=== PATIENT | male | born 1955 | race Caucasian/White ===

== ENCOUNTER 2019-10-19 10:16 | Emergency (ER) | payer MEDICARE, MEDICAID, SELFPAY ==
[2019-10-19 10:25] VITALS: BP 152/86; PULSE 71; RESP 16; TEMP 36.8; O2SAT 97; BMI 25.8
--- NOTE | 2019-10-19 10:38 | PC.NURSE ---
patient reports he was drilling a 11/04 hole overhead for plumbing and the tool slipped hitting his right forearm causing a large laceration. He states it bled really good at first making a mess of the house he was in. He reports the tool ripped the sleeve off of his shirt. He applied a pressure dressing with a bedsheet and tape. He lives on [address] and had to wait till today to get a ferry to come to the ED. States the clinic was closed on [place]
[2019-10-19] MEDS: TET,DIPH,PERTUSS(ACELL),VAC/PF 0.5 ML SYRINGE IM (10:39)
[2019-10-19] MEDS: LIDO 1%/SOD BICARB 8.4% (10ML) 10 ML SYRINGE INJ (10:39)
--- NOTE | 2019-10-19 11:07 | ED_ITS ---
HPI - Wound/Laceration General Chief Complaint: Wound/Laceration Stated Complaint: Wound from drill in right arm Time Seen by Provider: 10/19/19 10:36 History of Present Illness HPI narrative: 64-year-old gentleman with no significant medical history was working with a drill yesterday it slipped and left the laceration to the dorsum of the right forearm. It happened later in the evening and he lives on [address] and was not able to get to [place] until this morning. Related Data Previous Rx's Medication Instructions Recorded cephalexin 500 mg PO TID #21 cap 10/19/19 Allergies Allergy/AdvReac Type Severity Reaction Status Date / Time No Known Drug Allergies Allergy Verified 10/19/19 11:06 Review of Systems Review of Systems Narrative: Pertinent positive and negative findings as per HPI Remainder of review of systems is otherwise unremarkable for Constitutional: Fevers, chills, weakness ENT: No sore throat, neck pain, ear pain CV: Chest pain, palpitations, dyspnea on exertion Respiratory: Cough, wheeze, dyspnea GI: Nausea, vomiting, diarrhea, change in bowel habits, black or bloody stools : Dysuria, hematuria, flank pain MS: Muscle weakness, numbness, joint swelling or warmth Patient History Medical History (Updated 10/19/19 @ 11:09 by Shruhti Vicente MD) Healthy adult (Acute) Exam Narrative Exam Narrative: General: Alert appropriate in no acute distress Respiratory: Able to speak in full sentences, no obvious respiratory distress Skin: No obvious rashes, warm and dry Neurologic: Grossly intact no obvious asymmetries or abnormalities Psych, appropriate insight and affect, cooperative Extremity: General: Alert appropriate in no acute distress Respiratory: Able to speak in full sentences, no obvious respiratory distress Skin: No obvious rashes, warm and dry Neurologic: Grossly intact no obvious asymmetries or abnormalities Psych, appropriate insight and affect, cooperative Extremity: There is a wound to the dorsum of the right forearm, 4 cm in length full thickness. There is a half a cm defect to the fascial sheath underneath but no underlying tendon deficit. He is narrowed vascularly intact distally. Initial Vital Signs Initial Vital Signs: Vital Signs Temperature 98.2 F 10/19/19 10:25 Pulse Rate 71 10/19/19 10:25 Respiratory Rate 16 10/19/19 10:25 Blood Pressure 152/86 H 10/19/19 10:25 Pulse Oximetry 97 10/19/19 10:25 Procedures Laceration Repair Right forearm: Site: upper extremity Side (If applicable): right Size (cm): 4 Description: linear Depth: involves muscle layer Local Anesthetic: lidocaine 1% and with bicarb Amount of anesthesia used (mL): 10 Pre-repair: wound explored, irrigated extensively, deep structures intact and wound margins revised Skin layer closed with: nylon Size (cm): 3-0 Number of sutures: 8 Technique: simple, interrupted Subcutaneous layer closed with: chromic gut Size: 3-0 Number of sutures: 4 Course Orders Ordered: Discontinued Medications Bacitracin (Bacitracin) 5 applic TOP NOW ONE Stop: 10/19/19 11:04 Cephalexin HCl (Keflex) 500 mg PO NOW ONE Stop: 10/19/19 11:04 Diphtheria/Tetanus/Acell Pertussis (Adacel) 0.5 ml IM .ONCE ONE Stop: 10/19/19 10:28 Last Admin: 10/19/19 10:39 Dose: 0.5 ml Documented by: KAILA Lidocaine/Sodium Bicarbonate (Buffered Lidocaine 10 Ml Syr) 10 ml INJ NOW ONE Stop: 10/19/19 10:30 Last Admin: 10/19/19 10:31 Dose: Not Given Documented by: KAILA Lidocaine/Sodium Bicarbonate (Buffered Lidocaine 10 Ml Syr) 10 ml INJ NOW ONE Stop: 10/19/19 10:32 Last Admin: 10/19/19 10:39 Dose: 10 ml Documented by: KAILA Vital Signs Vital signs: Vital Signs - 8 hr 10/19/19 10:25 Temperature 98.2 F Pulse Rate 71 Respiratory Rate 16 Blood Pressure 152/86 H Pulse Oximetry 97 [facility] - Wound/Laceration Medical Records Attestation: I reviewed the patient's medical records. [facility] Narrative Medical decision making narrative: 64-year-old gentleman with full-thickness laceration to the back of his arm. Wound edges are revised for better both aesthetic and overall healing and also because the wound itself is almost 24 hours old. There is no tendon involvement and we barely clearly reviewed signs and symptoms of infection into the deeper structures of the forearm and need for immediate evaluation should he have any concerns. Wound is closed under moderate amount of tension so recommended 14 days to leave the sutures in. Tetanus status is updated and Keflex prescription is given. Patient is safe for home discharge Discharge Plan Departure Patient Disposition: Home Clinical Impression: Laceration Instructions: DI for Laceration Repair Activity Restrictions/Additional Instructions: Thank you for coming in today Your wound definitely needed stitches and is still at some risk for infection including infection deeper into your arm along the tendons. If you have any concerns whatsoever with increasing pain increasing pain with flexing her hand or fingers or redness or swelling you need to see a physician right away. I did put a number of stitches deep inside to hold the wound together and this stitches on the surface will need to come out on or about November 02 Please complete your course of Keflex 500 mg 3 times a day for 7 days. Using 400 mg of ibuprofen (2 [id number] pills) and 1 Tylenol every 6 hours can be very helpful in controlling pain. It was a pleasure to talk with you and I hope you heal quickly. Prescriptions: New cephalexin 500 mg capsule 500 mg PO TID Qty: 21 RF: 0 Referrals: Akbar Das MD [Primary Care Provider] -
[2019-10-19] MEDS: cephALEXin 250 MG CAPSULE 500 MG PO (11:21)
[2019-10-19] MEDS: BACITRACIN OINT 0.9 GM PCKT 5 APPLIC TOP (11:23)
[2019-10-19 11:36] VITALS: BP 126/74; PULSE 60; RESP 18; O2SAT 97
== END 2019-10-19 11:37 | disposition home or self-care (01) ==
PROVIDERS: Emergency Provider Emergency Medicine; PCP Family Medicine
DX: S51.811A Laceration without foreign body of right forearm, initial encounter (principal); W29.8XXA Contact with other powered hand tools and household machinery, initial encounter; Z23 Encounter for immunization
CPT/HCPCS: 13121; 90471; 99283; 99284; 90715